=== PATIENT | female | born 2000 | race Caucasian/White ===

== ENCOUNTER 2023-01-17 09:39 | Emergency (ER) | payer MEDICAID, OTHER ==
[~2023-01-17] VITALS: Ht 167.6 cm; Wt 82.0 kg
[2023-01-17] MEDS ORDERED: MORPHINE SULFATE 10 MG/ML CPJ IM ONE (10:00)
[2023-01-17] MEDS ORDERED: MORPHINE SULFATE 10 MG/ML CPJ IV NR (10:30)
[2023-01-17 11:00] VITALS: BP 124/82
[2023-01-17] MEDS ORDERED: KETOROLAC 15MG/ML VIAL IV ONE (12:30)
[2023-01-17] MEDS ORDERED: LORAZEPAM 1MG TABLET PO ONE (12:30)
[2023-01-17] MEDS ORDERED: DEXAMETHASONE 4MG/ML 1ML VIAL IV ONE (12:30)
== END 2023-01-17 13:56 | disposition home or self-care (01) ==
LOC: ER 09:39
DX: M54.50 Low back pain, unspecified (principal); Z98.890 Other specified postprocedural states
CPT/HCPCS: 72148; 96374; 99285; J2270; Z7610

== ENCOUNTER 2025-05-29 20:27 | Emergency (ER) | payer MEDICAID ==
[~2025-05-29] VITALS: Ht 167.6 cm; Wt 85.0 kg
[2025-05-29 20:29] VITALS: O2SAT 98
[2025-05-29] MEDS: ACETAMINOPHEN 325MG TABLET PO ONE (22:00)
[2025-05-30] MEDS ORDERED: LIDO-53 TP (00:15)
[2025-05-30] MEDS ORDERED: TOPUD MT (00:15)
[2025-05-30 00:30] VITALS: BP 116/81; PULSE 69; RESP 14; TEMP 36.2; O2SAT 98
== END 2025-05-30 00:31 | disposition home or self-care (01) ==
LOC: ER 20:27
DX: S50.311A Abrasion of right elbow, initial encounter (principal); F10.129 Alcohol abuse with intoxication, unspecified; Z88.6 Allergy status to analgesic agent; R42 Dizziness and giddiness; W19.XXXA Unspecified fall, initial encounter; Y93.89 Activity, other specified; Y92.89 Other specified places as the place of occurrence of the external cause; Y99.8 Other external cause status
CPT/HCPCS: 73080; 99284